=== PATIENT | male | born 1960 | race Caucasian/White ===

== ENCOUNTER 2017-05-08 14:39 | Inpatient (IN) | payer MEDICAID ==
[~2017-05-08] VITALS: Ht 175.3 cm; Wt 81.0 kg
[~2017-05-08 14:39] MED LIST: AMIT25PO14; AMIT75TA PO; BLOOD PRESSURE MEDS; DULO60CA7; HYDR-3240; HYDR-3240 PO; HYDR-3307 PO; INSU100C; INSU100C SQ-INSULIN; INSU100C5 SQ-INSULIN; INSU100V8; INSU100V8 SQ; INSU100V9 SQ; LISI-170; LISI-170 PO; METF500T4 PO; METO10TA82 PO; OXYC-302 PO; OXYC20TA42 PO; OXYC60TA8; POLY17PO5 PO; PREG100C; RISP2TAB35 PO; RISP4TAB2 PO; SIMV20TA3 PO; SIMV5TAB5 PO; TRAZ50TA18 PO; simvastatin
[2017-05-08] MEDS ORDERED: SODIUM CHLORIDE 0.9% 1,000 ML IV ONE ×2 (15:19→16:38)
[2017-05-08] MEDS ORDERED: SODIUM CHLORIDE 0.9% 1,000ML IVBOLUS ONE ×2 (15:30→17:00)
[2017-05-08] MEDS ORDERED: CEFTAROLINE 600 MG in SODIUM CHLORIDE 0.9% 100 ML IV ONE (15:30)
[2017-05-08] MEDS ORDERED: MORPHINE SULFATE 4 MG/ML, 1ML ONE ×2 (15:34→16:56)
[2017-05-08] MEDS: MORPHINE SULFATE 4 MG/ML, 1ML IVPush PRN ×2 (15:36→17:02)
[2017-05-08] MEDS ORDERED: ONDANSETRON 2MG/ML, 2ML IVPush ONE (16:00)
[2017-05-08 16:03] LABS: HEMATOCRIT 30.5 % (39.2-51.8); HEMOGLOBIN 10.2 g/dL (13.7-18.0); WHITE BLOOD COUNT 10.2 x10^3/uL (3.4-10)
[2017-05-08 16:15] LABS: BLOOD UREA NITROGEN 27 mg/dL (7-18)
[2017-05-08] MEDS ORDERED: SODIUM CHLORIDE FLUSH 10ML SYR IVF PRN (17:00)
[2017-05-08] MEDS ORDERED: ONDANSETRON 2MG/ML, 2ML IVPush PRN (18:30)
[2017-05-08] MEDS ORDERED: POLYETHYLENE GLYCOL 17 GM PACKET PO PRN (18:30)
[2017-05-08] MEDS ORDERED: PHARMACY MAY ADJ FOR RENAL FX MC PRN (18:30)
[2017-05-08] MEDS ORDERED: GLUCAGON 1 MG IM PRN (18:30)
[2017-05-08] MEDS ORDERED: LABETALOL 5MG/ML, 20ML IVPush PRN (18:30)
[2017-05-08] MEDS ORDERED: DEXTROSE 4 GM TAB.CHEW PO PRN (18:30)
[2017-05-08] MEDS ORDERED: ACETAMINOPHEN 325 MG TABLET PO PRN (18:30)
[2017-05-08] MEDS ORDERED: PROMETHAZINE 25 MG/ML, 1ML IM PRN (18:30)
[2017-05-08] MEDS ORDERED: PIPERACILLIN/TAZO/PMX 3.375GM 50 ML IV ONE (18:30)
[2017-05-08] MEDS ORDERED: DOCUSATE 100 MG CAPSULE PO PRN (18:30)
[2017-05-08] MEDS ORDERED: VANCOMYCIN PER PHARMACY MC PRN (18:30)
[2017-05-08] MEDS ORDERED: DEXTROSE 50%, 50ML SYRINGE IVPush PRN (18:30)
[2017-05-08] MEDS ORDERED: BISACODYL 10 MG SUPP PR PRN (18:30)
[2017-05-08] MEDS ORDERED: PHARMACOKINETIC CONSULTATION MC ONE (19:00)
[2017-05-08] MEDS ORDERED: PHARMACOKINETIC MONITORING MC PRN (19:00)
[2017-05-08 19:05] VITALS: BP 168/106
[2017-05-08] MEDS: TRAZODONE 50MG TABLET PO SCH (21:00)
[2017-05-08] MEDS: SIMVASTATIN 20 MG TABLET PO SCH (21:05)
[2017-05-08] MEDS: OxyconTIN ER 20 MG TAB.ER PO SCH (21:06)
[2017-05-08] MEDS: SODIUM CHLORIDE FLUSH 10ML SYR IVF SCH (21:06)
[2017-05-08] MEDS: SODIUM CHLORIDE 0.9% 1,000 ML IV SCH (21:06)
[2017-05-08] MEDS: HEPARIN 5,000 UNITS/ML, 1ML SQ SCH (21:07)
[2017-05-08 22:00] VITALS: BP 168/90
[2017-05-08] MEDS: VANCOMYCIN 1,400 MG in SODIUM CHLORIDE 0.9% 250 ML IV SCH (22:09)
[2017-05-08] MEDS: INSULIN DETEMIR 100 UNITS/ML, PEN SQ-INSULIN SCH (22:10)
[2017-05-08] MEDS: INSULIN ASPART 100 UNITS/ML, PEN SQ-INSULIN SCH (22:10)
[2017-05-09 01:20] VITALS: BP 155/86
[2017-05-09] MEDS: SODIUM CHLORIDE 0.9% 1,000 ML IV SCH ×3 (03:10→16:20)
[2017-05-09 04:55] LABS: HEMATOCRIT 29.7 % (39.2-51.8); HEMOGLOBIN 9.9 g/dL (13.7-18.0); WHITE BLOOD COUNT 6.9 x10^3/uL (3.4-10)
[2017-05-09 05:04] LABS: BLOOD UREA NITROGEN 22 mg/dL (7-18)
[2017-05-09 05:14] LABS: ASPARTATE AMINO TRANSFERASE 51 U/L (15-37)
[2017-05-09] MEDS: HEPARIN 5,000 UNITS/ML, 1ML SQ SCH ×3 (05:37→22:58)
[2017-05-09] MEDS: PIPERACILLIN/TAZO 2.25 GM in SODIUM CHLORIDE 0.9% 50 ML IV SCH ×2 (05:37→14:14)
[2017-05-09] MEDS: INSULIN DETEMIR 100 UNITS/ML, PEN SQ-INSULIN SCH (07:52)
[2017-05-09] MEDS: INSULIN ASPART 100 UNITS/ML, PEN SQ-INSULIN SCH ×4 (07:52→19:52)
[2017-05-09] MEDS: LISINOPRIL 20 MG TABLET PO SCH (07:53)
[2017-05-09] MEDS: OxyconTIN ER 20 MG TAB.ER PO SCH ×2 (07:53→22:58)
[2017-05-09] MEDS: SODIUM CHLORIDE FLUSH 10ML SYR IVF SCH ×2 (07:53→22:58)
[2017-05-09 08:10] VITALS: BP 153/85
[2017-05-09] MEDS: SENNA/DOCUSATE TABLET PO SCH (09:00)
[2017-05-09 13:37] VITALS: BP 158/93
[2017-05-09] MEDS: MUPIROCIN OINT 2%, 22GM TP SCH ×2 (14:14→22:59)
[2017-05-09] MEDS: MAGNESIUM SULFATE PMX 2GM/50ML 50 ML IV ONE ×2 (17:30→19:54)
[2017-05-09 19:44] VITALS: BP 167/89
[2017-05-09] MEDS: TRAZODONE 50MG TABLET PO SCH (22:58)
[2017-05-09] MEDS: SIMVASTATIN 20 MG TABLET PO SCH (22:58)
[2017-05-09] MEDS: VANCOMYCIN 1,400 MG in SODIUM CHLORIDE 0.9% 250 ML IV SCH (22:58)
[2017-05-10] MEDS: PIPERACILLIN/TAZO/PMX 3.375GM 50 ML IV SCH ×4 (00:56→18:42)
[2017-05-10] MEDS: INSULIN DETEMIR 100 UNITS/ML, PEN SQ-INSULIN SCH ×3 (01:05→21:17)
[2017-05-10 02:18] VITALS: BP 155/84
[2017-05-10 05:04] LABS: HEMATOCRIT 29.4 % (39.2-51.8); HEMOGLOBIN 9.9 g/dL (13.7-18.0); WHITE BLOOD COUNT 7.3 x10^3/uL (3.4-10)
[2017-05-10 05:16] LABS: BLOOD UREA NITROGEN 19 mg/dL (7-18)
[2017-05-10 05:20] LABS: ASPARTATE AMINO TRANSFERASE 59 U/L (15-37)
[2017-05-10] MEDS: SODIUM CHLORIDE 0.9% 1,000 ML IV SCH ×3 (05:42→18:43)
[2017-05-10 07:50] VITALS: BP 106/62
[2017-05-10] MEDS: INSULIN ASPART 100 UNITS/ML, PEN SQ-INSULIN SCH ×4 (08:18→21:18)
[2017-05-10] MEDS: OxyconTIN ER 20 MG TAB.ER PO SCH ×2 (08:20→21:17)
[2017-05-10] MEDS: HEPARIN 5,000 UNITS/ML, 1ML SQ SCH ×3 (08:20→23:04)
[2017-05-10] MEDS: MUPIROCIN OINT 2%, 22GM TP SCH ×3 (08:20→21:19)
[2017-05-10] MEDS: SENNA/DOCUSATE TABLET PO SCH (08:20)
[2017-05-10] MEDS: SODIUM CHLORIDE FLUSH 10ML SYR IVF SCH ×2 (08:20→21:17)
[2017-05-10] MEDS: LISINOPRIL 20 MG TABLET PO SCH (08:21)
[2017-05-10 13:00] VITALS: BP 108/106
[2017-05-10 19:53] VITALS: BP 133/75
[2017-05-10] MEDS: TRAZODONE 50MG TABLET PO SCH (21:18)
[2017-05-10] MEDS: SIMVASTATIN 20 MG TABLET PO SCH (21:18)
[2017-05-10] MEDS: VANCOMYCIN 1,400 MG in SODIUM CHLORIDE 0.9% 250 ML IV SCH (22:25)
[2017-05-11] MEDS: PIPERACILLIN/TAZO/PMX 3.375GM 50 ML IV SCH ×4 (00:08→22:00)
[2017-05-11 02:03] VITALS: BP 161/86
[2017-05-11 05:26] LABS: BLOOD UREA NITROGEN 22 mg/dL (7-18); TOTAL IRON BINDING CAPACITY 163 mcg/dL (250-450)
[2017-05-11 05:27] LABS: HEMATOCRIT 27.1 % (39.2-51.8); HEMOGLOBIN 9.2 g/dL (13.7-18.0); WHITE BLOOD COUNT 5.4 x10^3/uL (3.4-10)
[2017-05-11] MEDS: SODIUM CHLORIDE 0.9% 1,000 ML IV SCH ×3 (05:33→22:21)
[2017-05-11] MEDS: HEPARIN 5,000 UNITS/ML, 1ML SQ SCH ×3 (07:00→23:07)
[2017-05-11] MEDS: INSULIN ASPART 100 UNITS/ML, PEN SQ-INSULIN SCH ×4 (07:00→19:40)
[2017-05-11 07:11] VITALS: BP 140/84
[2017-05-11 07:14] LABS: HIV 1&2 ANTIBODY SCREEN Nonreactive (Nonreactive); HIV-1 p24 ANTIGEN Nonreactive (Nonreactive)
[2017-05-11] MEDS: SENNA/DOCUSATE TABLET PO SCH (07:36)
[2017-05-11] MEDS: OxyconTIN ER 20 MG TAB.ER PO SCH ×2 (07:36→21:25)
[2017-05-11] MEDS: LISINOPRIL 20 MG TABLET PO SCH (07:36)
[2017-05-11] MEDS: SODIUM CHLORIDE FLUSH 10ML SYR IVF SCH ×2 (07:37→19:40)
[2017-05-11] MEDS: MUPIROCIN OINT 2%, 22GM TP SCH ×3 (07:37→21:25)
[2017-05-11] MEDS: IRON SUCROSE COMPLEX 100MG/5ML IV SCH (12:48)
[2017-05-11 13:13] VITALS: BP 159/88
[2017-05-11] MEDS: INSULIN DETEMIR 100 UNITS/ML, PEN SQ-INSULIN SCH (19:35)
[2017-05-11 20:15] VITALS: BP 163/94
[2017-05-11] MEDS: TRAZODONE 50MG TABLET PO SCH (21:24)
[2017-05-11] MEDS: SIMVASTATIN 20 MG TABLET PO SCH (21:25)
[2017-05-12] MEDS: PIPERACILLIN/TAZO/PMX 3.375GM 50 ML IV SCH ×3 (04:00→18:06)
[2017-05-12 04:14] VITALS: BP 167/96
[2017-05-12] MEDS: SODIUM CHLORIDE 0.9% 1,000 ML IV SCH ×3 (04:14→18:06)
[2017-05-12 05:16] LABS: HEMATOCRIT 28.8 % (39.2-51.8); HEMOGLOBIN 9.8 g/dL (13.7-18.0)
[2017-05-12 05:26] LABS: BLOOD UREA NITROGEN 21 mg/dL (7-18)
[2017-05-12 07:28] VITALS: BP 138/84
[2017-05-12] MEDS: INSULIN ASPART 100 UNITS/ML, PEN SQ-INSULIN SCH ×4 (07:31→21:00)
[2017-05-12] MEDS: LISINOPRIL 20 MG TABLET PO SCH (07:32)
[2017-05-12] MEDS: SENNA/DOCUSATE TABLET PO SCH (07:33)
[2017-05-12] MEDS: MUPIROCIN OINT 2%, 22GM TP SCH ×3 (07:33→21:12)
[2017-05-12] MEDS: HEPARIN 5,000 UNITS/ML, 1ML SQ SCH ×2 (07:33→15:13)
[2017-05-12] MEDS: SODIUM CHLORIDE FLUSH 10ML SYR IVF SCH ×2 (07:34→21:00)
[2017-05-12] MEDS: INSULIN DETEMIR 100 UNITS/ML, PEN SQ-INSULIN SCH ×2 (07:34→21:11)
[2017-05-12] MEDS: OxyconTIN ER 20 MG TAB.ER PO SCH ×2 (07:38→21:10)
[2017-05-12] MEDS: IRON SUCROSE COMPLEX 100MG/5ML IV SCH (12:36)
[2017-05-12 12:56] VITALS: BP 150/87
[2017-05-12] MEDS ORDERED: PHARMACY MAY ADJ FOR RENAL FX MC PRN (14:00)
[2017-05-12 21:00] VITALS: BP 156/85
[2017-05-12] MEDS: SIMVASTATIN 20 MG TABLET PO SCH (21:10)
[2017-05-12] MEDS: TRAZODONE 50MG TABLET PO SCH (21:10)
[2017-05-13] MEDS: PIPERACILLIN/TAZO/PMX 3.375GM 50 ML IV SCH ×4 (00:49→18:21)
[2017-05-13] MEDS: SODIUM CHLORIDE 0.9% 1,000 ML IV SCH ×3 (00:49→17:26)
[2017-05-13] MEDS: HEPARIN 5,000 UNITS/ML, 1ML SQ SCH ×4 (00:49→22:56)
[2017-05-13 00:56] VITALS: BP 171/96
[2017-05-13 03:12] VITALS: BP 146/74
[2017-05-13] MEDS ORDERED: PROMETHAZINE 25 MG/ML, 1ML IM PRN (04:30)
[2017-05-13] MEDS ORDERED: LABETALOL 5MG/ML, 20ML IVPush PRN (04:30)
[2017-05-13] MEDS ORDERED: POLYETHYLENE GLYCOL 17 GM PACKET PO PRN (04:30)
[2017-05-13] MEDS ORDERED: DEXTROSE 4 GM TAB.CHEW PO PRN (04:30)
[2017-05-13] MEDS ORDERED: DEXTROSE 50%, 50ML SYRINGE IVPush PRN (04:30)
[2017-05-13] MEDS ORDERED: ACETAMINOPHEN 325 MG TABLET PO PRN (04:30)
[2017-05-13] MEDS ORDERED: BISACODYL 10 MG SUPP PR PRN (04:30)
[2017-05-13] MEDS ORDERED: ONDANSETRON 2MG/ML, 2ML IVPush PRN (04:30)
[2017-05-13] MEDS ORDERED: DOCUSATE 100 MG CAPSULE PO PRN (04:30)
[2017-05-13 07:37] VITALS: BP 158/84
[2017-05-13] MEDS: INSULIN ASPART 100 UNITS/ML, PEN SQ-INSULIN SCH ×4 (07:40→21:00)
[2017-05-13] MEDS: OxyconTIN ER 20 MG TAB.ER PO SCH ×2 (08:21→22:55)
[2017-05-13] MEDS: SENNA/DOCUSATE TABLET PO SCH (08:21)
[2017-05-13] MEDS: VANCOMYCIN 1,200 MG in SODIUM CHLORIDE 0.9% 250 ML IV SCH (08:21)
[2017-05-13] MEDS: MUPIROCIN OINT 2%, 22GM TP SCH ×3 (08:22→22:56)
[2017-05-13] MEDS: SODIUM CHLORIDE FLUSH 10ML SYR IVF SCH ×2 (08:22→21:00)
[2017-05-13] MEDS: IRON SUCROSE COMPLEX 100MG/5ML IV SCH (08:22)
[2017-05-13] MEDS: LISINOPRIL 20 MG TABLET PO SCH (08:25)
[2017-05-13] MEDS: INSULIN DETEMIR 100 UNITS/ML, PEN SQ-INSULIN SCH ×2 (08:26→21:00)
[2017-05-13 11:47] LABS: HEMATOCRIT 28.3 % (39.2-51.8); HEMOGLOBIN 9.4 g/dL (13.7-18.0); WHITE BLOOD COUNT 5.3 x10^3/uL (3.4-10)
[2017-05-13 11:58] LABS: BLOOD UREA NITROGEN 19 mg/dL (7-18)
[2017-05-13 14:05] VITALS: BP 159/88
[2017-05-13] MEDS: SIMVASTATIN 20 MG TABLET PO SCH (22:56)
[2017-05-13] MEDS: AMLODIPINE 5 MG TABLET PO SCH (22:56)
[2017-05-13] MEDS: TRAZODONE 50MG TABLET PO SCH (22:56)
[2017-05-13 23:20] VITALS: BP 177/97
[2017-05-14] MEDS: SODIUM CHLORIDE 0.9% 1,000 ML IV SCH ×3 (01:21→16:53)
[2017-05-14] MEDS: PIPERACILLIN/TAZO/PMX 3.375GM 50 ML IV SCH ×4 (01:22→20:33)
[2017-05-14 01:24] VITALS: BP 169/93
[2017-05-14 05:26] LABS: HEMATOCRIT 27.4 % (39.2-51.8); HEMOGLOBIN 9.1 g/dL (13.7-18.0); WHITE BLOOD COUNT 4.5 x10^3/uL (3.4-10)
[2017-05-14 05:51] LABS: BLOOD UREA NITROGEN 16 mg/dL (7-18)
[2017-05-14 07:25] VITALS: BP 132/82
[2017-05-14] MEDS: INSULIN ASPART 100 UNITS/ML, PEN SQ-INSULIN SCH ×4 (07:30→20:37)
[2017-05-14] MEDS: HEPARIN 5,000 UNITS/ML, 1ML SQ SCH ×3 (08:30→20:40)
[2017-05-14] MEDS: MUPIROCIN OINT 2%, 22GM TP SCH ×3 (08:32→20:33)
[2017-05-14] MEDS: SENNA/DOCUSATE TABLET PO SCH (08:32)
[2017-05-14] MEDS: IRON SUCROSE COMPLEX 100MG/5ML IV SCH (08:32)
[2017-05-14] MEDS: AMLODIPINE 5 MG TABLET PO SCH ×2 (08:32→20:33)
[2017-05-14] MEDS: SODIUM CHLORIDE FLUSH 10ML SYR IVF SCH ×2 (08:33→20:37)
[2017-05-14] MEDS: VANCOMYCIN 1,200 MG in SODIUM CHLORIDE 0.9% 250 ML IV SCH (08:33)
[2017-05-14] MEDS: INSULIN DETEMIR 100 UNITS/ML, PEN SQ-INSULIN SCH ×2 (08:34→20:37)
[2017-05-14] MEDS: OxyconTIN ER 20 MG TAB.ER PO SCH ×2 (09:19→20:33)
[2017-05-14 14:14] VITALS: BP 154/83
[2017-05-14] MEDS: SIMVASTATIN 20 MG TABLET PO SCH (20:33)
[2017-05-14] MEDS: TRAZODONE 50MG TABLET PO SCH (20:33)
[2017-05-14 20:42] VITALS: BP 157/88
[2017-05-15] MEDS: SODIUM CHLORIDE 0.9% 1,000 ML IV SCH ×4 (02:39→22:14)
[2017-05-15] MEDS: PIPERACILLIN/TAZO/PMX 3.375GM 50 ML IV SCH ×4 (02:41→22:13)
[2017-05-15 02:44] VITALS: BP 154/87
[2017-05-15] MEDS: INSULIN ASPART 100 UNITS/ML, PEN SQ-INSULIN SCH ×4 (07:00→21:00)
[2017-05-15] MEDS: HEPARIN 5,000 UNITS/ML, 1ML SQ SCH ×3 (07:00→23:14)
[2017-05-15 07:20] VITALS: BP 144/78
[2017-05-15] MEDS: INSULIN DETEMIR 100 UNITS/ML, PEN SQ-INSULIN SCH ×2 (09:00→22:14)
[2017-05-15] MEDS: IRON SUCROSE COMPLEX 100MG/5ML IV SCH (10:23)
[2017-05-15] MEDS: MUPIROCIN OINT 2%, 22GM TP SCH ×3 (10:23→22:22)
[2017-05-15] MEDS: SENNA/DOCUSATE TABLET PO SCH (10:26)
[2017-05-15] MEDS: AMLODIPINE 5 MG TABLET PO SCH ×2 (10:27→22:13)
[2017-05-15] MEDS: OxyconTIN ER 20 MG TAB.ER PO SCH ×2 (10:27→22:13)
[2017-05-15] MEDS: SODIUM CHLORIDE FLUSH 10ML SYR IVF SCH ×2 (10:28→22:14)
[2017-05-15 15:00] VITALS: BP 155/83
[2017-05-15] MEDS ORDERED: VANCOMYCIN 1,300 MG in SODIUM CHLORIDE 0.9% 250 ML IV SCH (20:00)
[2017-05-15 20:15] VITALS: BP 120/78
[2017-05-15] MEDS: TRAZODONE 50MG TABLET PO SCH (22:13)
[2017-05-15] MEDS: SIMVASTATIN 20 MG TABLET PO SCH (22:13)
[2017-05-16 01:47] VITALS: BP 143/89
[2017-05-16] MEDS: PIPERACILLIN/TAZO/PMX 3.375GM 50 ML IV SCH ×2 (04:43→10:39)
[2017-05-16] MEDS: INSULIN ASPART 100 UNITS/ML, PEN SQ-INSULIN SCH ×4 (07:00→21:00)
[2017-05-16] MEDS: OxyconTIN ER 20 MG TAB.ER PO SCH ×2 (08:09→21:58)
[2017-05-16] MEDS: SENNA/DOCUSATE TABLET PO SCH (08:10)
[2017-05-16] MEDS: AMLODIPINE 5 MG TABLET PO SCH ×2 (08:11→21:58)
[2017-05-16] MEDS: HEPARIN 5,000 UNITS/ML, 1ML SQ SCH ×3 (08:14→23:28)
[2017-05-16] MEDS: MUPIROCIN OINT 2%, 22GM TP SCH ×3 (08:15→21:58)
[2017-05-16] MEDS: SODIUM CHLORIDE FLUSH 10ML SYR IVF SCH ×2 (08:15→21:59)
[2017-05-16] MEDS: IRON SUCROSE COMPLEX 100MG/5ML IV SCH (08:15)
[2017-05-16] MEDS: SODIUM CHLORIDE 0.9% 1,000 ML IV SCH (08:15)
[2017-05-16] MEDS: INSULIN DETEMIR 100 UNITS/ML, PEN SQ-INSULIN SCH (09:00)
[2017-05-16 09:26] VITALS: BP 149/93
[2017-05-16 09:59] LABS: IS PT STATUS REG ER OR PRE ER? NO
[2017-05-16 14:16] VITALS: BP 148/93
[2017-05-16] MEDS: CLINDAMYCIN 300 MG CAPSULE PO SCH ×2 (15:47→21:58)
[2017-05-16 19:10] VITALS: BP 132/80
[2017-05-16 20:39] LABS: IS PT STATUS REG ER OR PRE ER? NO
[2017-05-16] MEDS: TRAZODONE 50MG TABLET PO SCH (21:58)
[2017-05-16] MEDS: SIMVASTATIN 20 MG TABLET PO SCH (21:58)
[2017-05-17 01:55] VITALS: BP 128/86
[2017-05-17] MEDS: CLINDAMYCIN 300 MG CAPSULE PO SCH ×4 (04:36→22:54)
[2017-05-17 06:49] VITALS: BP 129/81
[2017-05-17] MEDS: INSULIN ASPART 100 UNITS/ML, PEN SQ-INSULIN SCH ×4 (07:00→21:30)
[2017-05-17] MEDS: INSULIN DETEMIR 100 UNITS/ML, PEN SQ-INSULIN SCH (08:11)
[2017-05-17] MEDS ORDERED: REGADENOSON 0.4 MG/5 ML SYRINGE ONE (08:41)
[2017-05-17] MEDS: AMLODIPINE 5 MG TABLET PO SCH ×2 (09:00→21:30)
[2017-05-17] MEDS: OxyconTIN ER 20 MG TAB.ER PO SCH ×2 (09:00→21:30)
[2017-05-17] MEDS: FLORASTOR 250 MG CAPSULE PO SCH (09:00)
[2017-05-17] MEDS: SENNA/DOCUSATE TABLET PO SCH (09:00)
[2017-05-17] MEDS: IRON SUCROSE COMPLEX 100MG/5ML IV SCH (11:44)
[2017-05-17] MEDS: MUPIROCIN OINT 2%, 22GM TP SCH ×3 (11:44→21:30)
[2017-05-17] MEDS: SODIUM CHLORIDE FLUSH 10ML SYR IVF SCH ×2 (11:44→21:32)
[2017-05-17] MEDS: HEPARIN 5,000 UNITS/ML, 1ML SQ SCH ×2 (11:46→21:30)
[2017-05-17 14:00] VITALS: BP 131/79
[2017-05-17 19:41] VITALS: BP 115/73
[2017-05-17] MEDS: TRAZODONE 50MG TABLET PO SCH (21:30)
[2017-05-17] MEDS: SIMVASTATIN 20 MG TABLET PO SCH (21:30)
[2017-05-18 02:40] VITALS: BP 136/83
[2017-05-18] MEDS: CLINDAMYCIN 300 MG CAPSULE PO SCH (04:51)
[2017-05-18] MEDS: HEPARIN 5,000 UNITS/ML, 1ML SQ SCH (04:52)
[2017-05-18] MEDS: INSULIN ASPART 100 UNITS/ML, PEN SQ-INSULIN SCH (07:00)
[2017-05-18 07:59] VITALS: BP 155/62
[2017-05-18] MEDS: IRON SUCROSE COMPLEX 100MG/5ML IV SCH (08:04)
[2017-05-18] MEDS: AMLODIPINE 5 MG TABLET PO SCH (08:05)
[2017-05-18] MEDS: OxyconTIN ER 20 MG TAB.ER PO SCH (08:05)
[2017-05-18] MEDS: SODIUM CHLORIDE FLUSH 10ML SYR IVF SCH (08:05)
[2017-05-18] MEDS: INSULIN DETEMIR 100 UNITS/ML, PEN SQ-INSULIN SCH (08:06)
[2017-05-18] MEDS: FLORASTOR 250 MG CAPSULE PO SCH (08:07)
[2017-05-18] MEDS: MUPIROCIN OINT 2%, 22GM TP SCH (08:07)
[2017-05-18] MEDS ORDERED: SENNA/DOCUSATE TABLET PO SCH (09:00)
[2017-05-18] MEDS ORDERED: CARV3.1212 PO (10:47)
[2017-05-18] MEDS ORDERED: CLIN300C8 PO (10:47)
== END 2017-05-18 11:45 | disposition left against medical advice (07) | DRG 682 ==
LOC: ED 15:48 → EDIP 16:38 → 3NE 18:13
PROVIDERS: ADMIT Internal Medicine; ATTEND Internal Medicine
PROC: 02HV33Z Insertion of Infusion Device into Superior Vena Cava, Percutaneous Approach (ICD-10-PCS; principal; 2017-05-12)
PROC: B548ZZA Ultrasonography of Superior Vena Cava, Guidance (ICD-10-PCS; 2017-05-12)
PROC: B5181ZA Fluoroscopy of Superior Vena Cava using Low Osmolar Contrast, Guidance (ICD-10-PCS; 2017-05-12)
DX: N17.0 Acute kidney failure with tubular necrosis (principal); E43 Unspecified severe protein-calorie malnutrition; I42.9 Cardiomyopathy, unspecified; E10.21 Type 1 diabetes mellitus with diabetic nephropathy; I13.0 Hypertensive heart and chronic kidney disease with heart failure and stage 1 through stage 4 chronic kidney disease, or unspecified chronic kidney disease; I50.9 Heart failure, unspecified; K70.9 Alcoholic liver disease, unspecified; F11.20 Opioid dependence, uncomplicated; L03.115 Cellulitis of right lower limb; L03.116 Cellulitis of left lower limb; L02.416 Cutaneous abscess of left lower limb; L02.415 Cutaneous abscess of right lower limb; N18.4 Chronic kidney disease, stage 4 (severe); I27.2 Other secondary pulmonary hypertension; D63.8 Anemia in other chronic diseases classified elsewhere; E10.22 Type 1 diabetes mellitus with diabetic chronic kidney disease; E10.621 Type 1 diabetes mellitus with foot ulcer; E10.42 Type 1 diabetes mellitus with diabetic polyneuropathy; E10.43 Type 1 diabetes mellitus with diabetic autonomic (poly)neuropathy; E10.610 Type 1 diabetes mellitus with diabetic neuropathic arthropathy; E78.00 Pure hypercholesterolemia, unspecified; E78.5 Hyperlipidemia, unspecified; F17.210 Nicotine dependence, cigarettes, uncomplicated; F31.9 Bipolar disorder, unspecified; F42.4 Excoriation (skin-picking) disorder; G89.29 Other chronic pain; K31.84 Gastroparesis; L30.9 Dermatitis, unspecified; L97.509 Non-pressure chronic ulcer of other part of unspecified foot with unspecified severity; F10.20 Alcohol dependence, uncomplicated; F19.10 Other psychoactive substance abuse, uncomplicated; M19.90 Unspecified osteoarthritis, unspecified site; Z89.421 Acquired absence of other right toe(s); Z79.4 Long term (current) use of insulin; Z86.14 Personal history of Methicillin resistant Staphylococcus aureus infection; Z68.26 Body mass index [BMI] 26.0-26.9, adult
CPT/HCPCS: 36415; 36569; 76937; 77001; 78452; 80048; 80053; 80061; 80202; 82010; 82040; 82800; 82962; 83036; 83540; 83550; 83605; 83735; 84100; 84145; 84443; 84484; 85025; 86703; 87040; 87899; 93005; 93017; 93306; 93970; 96361; 96365; 96375; 96376; J0712; J1644; J1756; J1815; J2405; J2543; J2785; J3370; A9502; C1751; C9898; G0435; J3475; J7030; J7050

== ENCOUNTER 2017-05-21 04:03 | Inpatient (IN) | payer MEDICAID ==
[~2017-05-21] VITALS: Ht 175.3 cm; Wt 76.8 kg
[~2017-05-21 04:03] MED LIST changes: +CARV3.1212 PO; +CLIN300C8 PO
[2017-05-21] MEDS ORDERED: NITROGLYCERIN SINGLE TAB 0.4 MG SL ONE (04:54)
[2017-05-21] MEDS ORDERED: ASPIRIN 81 MG TABLET CHEW ONE (04:55)
[2017-05-21] MEDS ORDERED: SODIUM CHLORIDE 0.9% 1,000ML IVBOLUS ONE (05:00)
[2017-05-21] MEDS ORDERED: ASPIRIN 81 MG TABLET CHEW PO ONE (05:00)
[2017-05-21] MEDS ORDERED: SODIUM CHLORIDE FLUSH 10ML SYR IVF ONE (05:00)
[2017-05-21] MEDS ORDERED: NITROGLYCERIN SINGLE TAB 0.4 MG SL PRN (05:00)
[2017-05-21] MEDS ORDERED: SODIUM CHLORIDE 0.9% 1,000 ML IV ONE (05:05)
[2017-05-21 05:45] LABS: HEMATOCRIT 27.6 % (39.2-51.8); HEMOGLOBIN 9.4 g/dL (13.7-18.0); WHITE BLOOD COUNT 7.1 x10^3/uL (3.4-10)
[2017-05-21 05:55] LABS: BLOOD UREA NITROGEN 24 mg/dL (7-18)
[2017-05-21 06:02] LABS: ASPARTATE AMINO TRANSFERASE 56 U/L (15-37)
[2017-05-21] MEDS ORDERED: FUROSEMIDE 20 MG/2 ML IV ONE (06:30)
[2017-05-21] MEDS ORDERED: FUROSEMIDE 20 MG/2 ML ONE (06:44)
[2017-05-21 06:54] LABS: IS PT STATUS REG ER OR PRE ER? YES
[2017-05-21] MEDS ORDERED: SODIUM CHLORIDE FLUSH 10ML SYR IVF PRN (07:00)
[2017-05-21 11:42] VITALS: BP 167/88
[2017-05-21 12:32] LABS: PATH.CAST-FLAG NOT PRESENT; SPERM-FLAG NOT PRESENT; SRC-FLAG NOT PRESENT; XTAL-FLAG NOT PRESENT; YLC-FLAG NOT PRESENT
[2017-05-21] MEDS ORDERED: morphine SULFATE 10 MG/ML, 1ML IVPush PRN (13:30)
[2017-05-21] MEDS ORDERED: POLYETHYLENE GLYCOL 17 GM PACKET PO PRN (13:30)
[2017-05-21] MEDS ORDERED: LABETALOL 5MG/ML, 20ML IVPush PRN (13:30)
[2017-05-21] MEDS ORDERED: ONDANSETRON ODT 4 MG PO PRN (13:30)
[2017-05-21] MEDS ORDERED: GUAIFENESIN/DM 200-20MG, 10ML UDC PO PRN (13:30)
[2017-05-21] MEDS ORDERED: ONDANSETRON 2MG/ML, 2ML IVPush PRN (13:30)
[2017-05-21] MEDS: ENOXAPARIN 40 MG/0.4 ML SQ SCH (14:26)
[2017-05-21] MEDS: HYDROcodone/APAP 5/325 TABLET PO PRN ×2 (14:26→23:12)
[2017-05-21] MEDS ORDERED: ALBUTEROL SULFATE 2.5 MG/3 ML ONE (15:31)
[2017-05-21] MEDS: ALBUTEROL SULFATE 2.5 MG/3 ML NPPB PRN ×2 (15:35→23:39)
[2017-05-21 16:00] VITALS: BP 129/66
[2017-05-21] MEDS: FUROSEMIDE 20 MG/2 ML IV SCH (16:04)
[2017-05-21] MEDS: INSULIN ASPART 100 UNITS/ML, PEN SQ-INSULIN SCH ×2 (16:14→23:13)
[2017-05-21 17:08] LABS: IS PT STATUS REG ER OR PRE ER? NO
[2017-05-21] MEDS ORDERED: INSU100I34 SC (17:54)
[2017-05-21] MEDS ORDERED: ATOR40TA78 PO (17:54)
[2017-05-21] MEDS ORDERED: METF500T4 PO (17:54)
[2017-05-21] MEDS ORDERED: ASPI-621 PO (17:54)
[2017-05-21 20:20] VITALS: BP 140/78
[2017-05-21] MEDS ORDERED: SIMVASTATIN 20 MG TABLET PO SCH (21:00)
[2017-05-21] MEDS: CARVEDILOL 3.125 MG TABLET PO SCH (23:12)
[2017-05-21] MEDS: INSULIN DETEMIR 100 UNITS/ML, PEN SQ-INSULIN SCH (23:18)
[2017-05-22 02:15] VITALS: BP 138/73
[2017-05-22 05:56] LABS: HEMATOCRIT 28.4 % (39.2-51.8); HEMOGLOBIN 9.7 g/dL (13.7-18.0)
[2017-05-22 06:24] LABS: ASPARTATE AMINO TRANSFERASE 48 U/L (15-37); BLOOD UREA NITROGEN 25 mg/dL (7-18)
[2017-05-22] MEDS: INSULIN ASPART 100 UNITS/ML, PEN SQ-INSULIN SCH ×4 (07:00→21:16)
[2017-05-22 07:19] VITALS: BP 169/86
[2017-05-22] MEDS: HYDROcodone/APAP 5/325 TABLET PO PRN ×3 (07:29→20:07)
[2017-05-22] MEDS: ASPIRIN 81 MG TABLET EC PO SCH (08:51)
[2017-05-22] MEDS: LISINOPRIL 20 MG TABLET PO SCH (08:51)
[2017-05-22] MEDS: CARVEDILOL 3.125 MG TABLET PO SCH ×2 (08:51→21:14)
[2017-05-22] MEDS: SENNA/DOCUSATE TABLET PO SCH (08:51)
[2017-05-22] MEDS: INSULIN DETEMIR 100 UNITS/ML, PEN SQ-INSULIN SCH (08:52)
[2017-05-22] MEDS ORDERED: POTASSIUM CHLORIDE 20 MEQ TAB.ER.PRT PO ONE ×2 (09:00→17:00)
[2017-05-22] MEDS: FUROSEMIDE 20 MG/2 ML IV SCH ×2 (09:02→16:27)
[2017-05-22] MEDS: ENOXAPARIN 40 MG/0.4 ML SQ SCH (13:27)
[2017-05-22 13:39] VITALS: BP 167/92
[2017-05-22] MEDS ORDERED: MAGNESIUM SULFATE PMX 2GM/50ML 50 ML IV ONE (17:00)
[2017-05-22 18:51] VITALS: BP 157/88
[2017-05-22] MEDS: ALBUTEROL SULFATE 2.5 MG/3 ML NPPB PRN (20:41)
[2017-05-22] MEDS ORDERED: ATORVASTATIN 40 MG TABLET PO SCH (21:00)
[2017-05-22] MEDS ORDERED: INSULIN DETEMIR 100 UNITS/ML, PEN SQ-INSULIN SCH (21:00)
[2017-05-22] MEDS ORDERED: SODIUM CHLORIDE 0.9% 1,000 ML IV SCH (21:00)
[2017-05-23] MEDS: HYDROcodone/APAP 5/325 TABLET PO PRN ×3 (00:06→14:32)
[2017-05-23 03:00] VITALS: BP 152/86
[2017-05-23 05:48] LABS: HEMATOCRIT 31.7 % (39.2-51.8); HEMOGLOBIN 10.6 g/dL (13.7-18.0); WHITE BLOOD COUNT 6.7 x10^3/uL (3.4-10)
[2017-05-23 06:26] LABS: ASPARTATE AMINO TRANSFERASE 53 U/L (15-37); BLOOD UREA NITROGEN 28 mg/dL (7-18)
[2017-05-23] MEDS ORDERED: POTA20TA89 PO (06:43)
[2017-05-23] MEDS ORDERED: FURO-93 PO (06:43)
[2017-05-23] MEDS ORDERED: CEFD300C37 PO (06:44)
[2017-05-23] MEDS ORDERED: DOXY100T PO (06:44)
[2017-05-23 06:50] VITALS: BP 150/91
[2017-05-23] MEDS: INSULIN ASPART 100 UNITS/ML, PEN SQ-INSULIN SCH ×2 (07:00→11:00)
[2017-05-23] MEDS ORDERED: CEFTRIAXONE PMX 2GM/50ML 50 ML IV SCH (07:00)
[2017-05-23] MEDS ORDERED: FUROSEMIDE 40 MG TABLET PO SCH (07:30)
[2017-05-23] MEDS ORDERED: INSULIN DETEMIR 100 UNITS/ML, PEN SQ-INSULIN SCH ×4 (08:00→21:00)
[2017-05-23] MEDS ORDERED: GABAPENTIN 100 MG CAPSULE PO SCH (09:00)
[2017-05-23] MEDS ORDERED: DOXYCYCLINE 100MG TABLET PO SCH (09:00)
[2017-05-23] MEDS: SENNA/DOCUSATE TABLET PO SCH (09:00)
[2017-05-23] MEDS: LISINOPRIL 20 MG TABLET PO SCH (09:21)
[2017-05-23] MEDS: ASPIRIN 81 MG TABLET EC PO SCH (09:21)
[2017-05-23] MEDS: CARVEDILOL 3.125 MG TABLET PO SCH (09:47)
[2017-05-23] MEDS: ENOXAPARIN 40 MG/0.4 ML SQ SCH (12:58)
[2017-05-23 14:26] VITALS: BP 163/99
[2017-05-24] MEDS ORDERED: INSU100V13 SC ×2 (10:16→10:23)
== END 2017-05-23 15:38 | disposition home or self-care (01) | DRG 291 ==
LOC: ED 05:48 → EDIP 06:36 → 5SO 11:25 → DCLOUNGE 05-23 15:05
PROVIDERS: ADMIT Hospitalist; ATTEND Hospitalist
DX: I13.0 Hypertensive heart and chronic kidney disease with heart failure and stage 1 through stage 4 chronic kidney disease, or unspecified chronic kidney disease (principal); I50.41 Acute combined systolic (congestive) and diastolic (congestive) heart failure; J18.9 Pneumonia, unspecified organism; E10.21 Type 1 diabetes mellitus with diabetic nephropathy; E10.40 Type 1 diabetes mellitus with diabetic neuropathy, unspecified; E46 Unspecified protein-calorie malnutrition; I27.2 Other secondary pulmonary hypertension; L03.115 Cellulitis of right lower limb; K70.9 Alcoholic liver disease, unspecified; I25.10 Atherosclerotic heart disease of native coronary artery without angina pectoris; D63.8 Anemia in other chronic diseases classified elsewhere; E10.22 Type 1 diabetes mellitus with diabetic chronic kidney disease; E10.65 Type 1 diabetes mellitus with hyperglycemia; E78.00 Pure hypercholesterolemia, unspecified; E78.5 Hyperlipidemia, unspecified; F10.21 Alcohol dependence, in remission; F31.9 Bipolar disorder, unspecified; F42.4 Excoriation (skin-picking) disorder; G40.909 Epilepsy, unspecified, not intractable, without status epilepticus; G89.29 Other chronic pain; N18.3 Chronic kidney disease, stage 3 (moderate); Z79.4 Long term (current) use of insulin; Z85.05 Personal history of malignant neoplasm of liver; Z86.14 Personal history of Methicillin resistant Staphylococcus aureus infection; Z87.891 Personal history of nicotine dependence
CPT/HCPCS: 36415; 71010; 76700; 78582; 80053; 80061; 81001; 82962; 83036; 83735; 83880; 84439; 84484; 85025; 85610; 87040; 87070; 87077; 87186; 87205; 93005; 94640; 96374; J0696; J1650; J1815; J7613; A9540; A9558; C9898; J1940; J3475

== ENCOUNTER 2018-12-24 12:13 | Emergency (ER) | payer MEDICARE, MEDICAID ==
[~2018-12-24] VITALS: Ht 175.3 cm; Wt 75.7 kg
[~2018-12-24 12:13] MED LIST changes: +ASPI81TA45 PO; +ATOR40TA78 PO; +CEFD300C37 PO; +DOXY100T PO; +FURO-93 PO; +INSU100I34 SC; +INSU100V13 SC; +METF500T17 PO; -METF500T4 PO; +POTA20TA89 PO; +SIMV5TAB14 PO; -SIMV5TAB5 PO; -TRAZ50TA18 PO; +TRAZ50TA66 PO
--- NOTE | 2018-12-24 12:31 | NUR ---
PT HERE FOR COUGH X 8 DAYS WITHOUT RELIEF. PT DENIES ANY OTHER SYMPTOMS. REPORTS NOT TAKING HIS BP MEDICATIONS THIS MORNING. PT RESTING IN BED AND SPEAKING IN FULL SENTANCES.
[2018-12-24 13:10] LABS: BASOPHILS # (AUTO) 0.02 x10^3/uL (0-0.1); BASOPHILS % (AUTO) 0 % (0-1); EOSINOPHILS # (AUTO) 0.14 x10^3/uL (0-0.4); EOSINOPHILS % (AUTO) 1 % (1-7); LYMPHOCYTES # (AUTO) 1.53 x10^3/uL (1-3.4); LYMPHOCYTES % (AUTO) 15 % (22-44); MD NO; MEAN CORPUSCULAR HEMOGLOBIN 30.9 pg (27.5-34.5); MEAN CORPUSCULAR VOLUME 96.4 fL (81-97); MEAN PLATELET VOLUME 9.1 fL (7.4-10.4); MONOCYTES # (AUTO) 0.46 x10^3/uL (0.2-0.8); MONOCYTES % (AUTO) 5 % (2-9); NEUTROPHILS # (AUTO) 8.12 x10^3/uL (1.8-6.8); NEUTROPHILS % (AUTO) 79 % (42-75); PLATELET COUNT 293 x10^3/uL (130-400); RED BLOOD COUNT 3.05 x10^6/uL (4.38-5.82); RED CELL DISTRIBUTION WIDTH 16.1 % (9.4-14.8)
--- NOTE | 2018-12-24 13:10 | NUR ---
UPON FURTHER ASSESSMENT PT WAS FOUND TO BE JAUNDICE AND HAVING CONJUCTIVA PALE. PT REPORTS HX OF LOW H/H. PT HAS ALSO WHAT APPEARS TO BE A LBB ON HIS EKG. PT HAD PIV PLACED AND TYPE/CROSS WITH LABS COLLECTED. PT MOVED TO CORE ROOM 02 PER [employer]ATOR REQUEST. REPORT TO LUCILA CLINE.
[2018-12-24 13:21] LABS: ALBUMIN 2.5 g/dL (3.4-5.0); ANION GAP 9 mmol/L (5-15); CALCIUM 8.1 mg/dL (8.5-10.1); CHLORIDE 111 mmol/L (98-107)
[2018-12-24 13:24] LABS: ALANINE AMINOTRANSFERASE 65 U/L (12-78); ALKALINE PHOSPHATASE 127 U/L (45-117); BILIRUBIN,TOTAL 0.4 mg/dL (0.2-1.0); CREATININE 4.12 mg/dL (0.7-1.3); TOTAL PROTEIN 8.8 g/dL (6.4-8.2)
--- NOTE | 2018-12-24 14:00 | NUR ---
REPORT FROM LAUREN RN WITH ASSESSMENT PATIENT RESTING COMFORTABLY ON GURNEY MINIMAL WOB NOTED, RR17, 93% ON RA PROVIDER TO BEDSIDE-PLAN TO D/C SHORTLY W/ MEDICATION FOR PNA AND REFERRAL TO ESTABLISHED SPECIALISTS
[2018-12-24 14:35] VITALS: BP 159/106
== END 2018-12-24 14:38 | disposition home or self-care (01) ==
LOC: ED 14:08
DX: J15.9 Unspecified bacterial pneumonia (principal); I12.9 Hypertensive chronic kidney disease with stage 1 through stage 4 chronic kidney disease, or unspecified chronic kidney disease; N18.9 Chronic kidney disease, unspecified; E10.22 Type 1 diabetes mellitus with diabetic chronic kidney disease; E10.65 Type 1 diabetes mellitus with hyperglycemia; F31.9 Bipolar disorder, unspecified; G40.909 Epilepsy, unspecified, not intractable, without status epilepticus; E78.00 Pure hypercholesterolemia, unspecified; Z87.891 Personal history of nicotine dependence; D64.9 Anemia, unspecified
CPT/HCPCS: 36415; 71046; 80053; 82306; 83735; 83970; 84100; 85025; 86850; 86900; 93005; 99284

== ENCOUNTER 2019-01-17 02:43 | Inpatient (IN) | payer MEDICARE, MEDICAID ==
[~2019-01-17] VITALS: Ht 175.3 cm; Wt 68.1 kg
[2019-01-17 03:23] LABS: MEAN CORPUSCULAR HEMOGLOBIN 31.1 pg (27.5-34.5); MEAN CORPUSCULAR HGB CONC 31.9 g/dL (33.2-36.2); MEAN CORPUSCULAR VOLUME 97.5 fL (81-97); MEAN PLATELET VOLUME 10.1 fL (7.4-10.4); PLATELET COUNT 141 x10^3/uL (130-400); RED BLOOD COUNT 3.13 x10^6/uL (4.38-5.82)
[2019-01-17 03:31] LABS: INTERNATIONAL NORMALIZED RATIO 1.4 (0.93-1.1); PROTHROMBIN TIME 14.5 Seconds (9.6-11.5)
[2019-01-17 03:34] LABS: ALANINE AMINOTRANSFERASE 112 U/L (12-78); ALBUMIN 1.9 g/dL (3.4-5.0); ANION GAP 14 mmol/L (5-15); CALCIUM 8.2 mg/dL (8.5-10.1); CHLORIDE 106 mmol/L (98-107); CREATININE 6.56 mg/dL (0.7-1.3)
[2019-01-17] MEDS ORDERED: PIPERACILLIN/TAZO/PMX 3.375GM 50 ML ONE (03:35)
[2019-01-17 03:38] LABS: ALKALINE PHOSPHATASE 73 U/L (45-117)
--- NOTE | 2019-01-17 03:45 | NUR ---
BLOOD CULTURES HAVE BEEN DRAWN TIMES 2 PRIOR TO ABX ADMINISTRATION
[2019-01-17 03:46] LABS: TROPONIN I 0.128 ng/mL (0.000-0.045)
[2019-01-17] MEDS ORDERED: VANCOMYCIN 1,400 MG in SODIUM CHLORIDE 0.9% 250 ML IV ONE (04:00)
[2019-01-17] MEDS ORDERED: SODIUM CHLORIDE 0.9% 1,000ML IVBOLUS ONE ×3 (04:00→13:00)
[2019-01-17] MEDS ORDERED: PIPERACILLIN/TAZO/PMX 3.375GM 50 ML IVPB ONE (04:00)
[2019-01-17] MEDS ORDERED: VANCOMYCIN PER PHARMACY IV ONE (04:00)
[2019-01-17 04:06] LABS: MD YES
[2019-01-17 04:12] LABS: BAND#(MANUAL) 2.28 x10^3/uL; BANDS%(MANUAL) 20 % (0-7); EOS#(MANUAL) 0.11 x10^3/uL (0.0-0.4); EOS% (MANUAL) 1 % (1-7); LYMPHS% (MANUAL) 7 % (22-44); MONOS#(MANUAL) 0.46 x10^3/uL (0.3-2.7); MONOS% (MANUAL) 4 % (2-9); MYELOCYTES# (MANUAL) 0.11 x10^3/uL (0-0); MYELOCYTES% (MANUAL) 1 % (0-0); SEG#(MANUAL) 7.64 x10^3/uL (1.8-6.8); SEGS% (MANUAL) 67 % (42-75)
[2019-01-17 04:13] LABS: ANISOCYTOSIS 1+
[2019-01-17 04:14] LABS: POLYCHROMASIA 1+
[2019-01-17] MEDS ORDERED: SODIUM CHLORIDE 0.9% 1,000 ML IV SCH (04:14)
[2019-01-17 04:15] LABS: <PLATELET ESTIMATE> ADEQUATE; LARGE PLATELETS 1+; PMNS WITH VACUOLES 1+; TOXIC GRAN 2+
--- NOTE | 2019-01-17 04:17 | NUR ---
DR FORRESTER AT BEDSIDE
[2019-01-17] MEDS ORDERED: OXYcodone IR 5MG TABLET PO PRN (04:30)
[2019-01-17] MEDS ORDERED: POLYETHYLENE GLYCOL 17 GM PACKET PO PRN (04:30)
[2019-01-17] MEDS ORDERED: hydrALAzine 20 MG/ML, 1ML IVPush PRN (04:30)
[2019-01-17] MEDS ORDERED: ONDANSETRON 2MG/ML, 2ML IVPush PRN (04:30)
[2019-01-17] MEDS ORDERED: DOCUSATE 100 MG CAPSULE PO PRN (04:30)
[2019-01-17] MEDS ORDERED: HEPARIN 5,000 UNITS/ML, 1ML SQ SCH (04:30)
[2019-01-17] MEDS ORDERED: BISACODYL 10 MG SUPP PR PRN (04:30)
[2019-01-17] MEDS ORDERED: NITROGLYCERIN 0.4 MG BOTTLE (25 TABS) SL PRN (04:30)
[2019-01-17] MEDS ORDERED: ACETAMINOPHEN 325 MG TABLET PO PRN (04:30)
[2019-01-17] MEDS ORDERED: NICOTINE 7 MG/24 HR PATCH.TD24 TD SCH (04:30)
[2019-01-17] MEDS ORDERED: ONDANSETRON ODT 4 MG PO PRN (04:30)
[2019-01-17] MEDS ORDERED: PROMETHAZINE 25 MG/ML, 1ML IM PRN (04:30)
[2019-01-17] MEDS ORDERED: DEXTROSE 4 GM TAB.CHEW PO PRN ×2 (05:00→13:00)
[2019-01-17] MEDS ORDERED: CEFTRIAXONE PMX 2GM/50ML 50 ML IV SCH (05:00)
[2019-01-17] MEDS ORDERED: DOXYCYCLINE 100 MG in DEXTROSE 5% 250 ML IV SCH ×2 (05:00→11:00)
[2019-01-17] MEDS ORDERED: DEXTROSE 50%, 50ML SYRINGE IVPush PRN ×2 (05:00→13:00)
[2019-01-17] MEDS ORDERED: GLUCAGON 1 MG IM PRN ×2 (05:00→13:00)
[2019-01-17 05:06] LABS: FREE T4 (FREE THYROXINE) 1.15 ng/dL (0.76-1.46)
[2019-01-17 05:11] LABS: THYROID STIMULATING HORMONE 0.395 mIU/L (0.358-3.740)
[2019-01-17 05:12] LABS: HEMOGLOBIN A1C 7.7 % (4.2-6.3)
[2019-01-17 05:14] VITALS: BP 99/64
[2019-01-17] MEDS ORDERED: ASPIRIN 325 MG TABLET EC PO SCH (06:00)
[2019-01-17] MEDS ORDERED: INSULIN LISPRO 100 UNITS/ML, PEN SQ-INSULIN SCH ×3 (07:00→16:00)
[2019-01-17] MEDS: morphine SULFATE 10 MG/ML, 1ML IVPush PRN ×4 (07:06→08:15)
[2019-01-17] MEDS ORDERED: SODIUM BICARBONATE 1 MEQ/ML, 50ML VIAL ONE ×2 (07:41→15:21)
[2019-01-17] MEDS ORDERED: EPINEPHRINE SYRINGE 0.1 MG/ML, 10ML ONE ×3 (07:41→10:30)
[2019-01-17] MEDS ORDERED: DEXTROSE 50%, 50ML SYRINGE ONE (07:41)
[2019-01-17] MEDS ORDERED: SODIUM BICARB 8.4%, 50ML SYRINGE ONE ×4 (07:45→16:30)
[2019-01-17 07:56] VITALS: BP 101/65
[2019-01-17 08:25] LABS: ANION GAP 12 mmol/L (5-15); CALCIUM 8.3 mg/dL (8.5-10.1); CHLORIDE 107 mmol/L (98-107)
[2019-01-17 08:33] LABS: CREATININE 6.32 mg/dL (0.7-1.3)
[2019-01-17] MEDS ORDERED: ASPIRIN 81 MG TABLET EC PO SCH (09:00)
[2019-01-17] MEDS ORDERED: SODIUM CHLORIDE FLUSH 10ML SYR IVF SCH ×2 (09:00→21:00)
[2019-01-17] MEDS ORDERED: ZOSYN PER PHARMACY MC PRN (09:00)
[2019-01-17] MEDS ORDERED: CARVEDILOL 3.125 MG TABLET PO SCH (09:00)
[2019-01-17] MEDS ORDERED: LIDOCAINE-MPF 1%, 5ML ONE (09:40)
[2019-01-17] MEDS ORDERED: LINEZOLID PMX 600MG/300ML 300 ML IV SCH ×2 (10:00→13:00)
[2019-01-17] MEDS ORDERED: AMIODARONE 50 MG/ML, 3ML ONE (10:30)
[2019-01-17] MEDS ORDERED: CODE BLUE RESPONSE XX ONE ×2 (10:30→16:30)
[2019-01-17] MEDS ORDERED: ETOMIDATE 20 MG/10 ML ONE (10:30)
[2019-01-17] MEDS ORDERED: NALOXONE 1 MG/ML, 2ML ONE (10:30)
[2019-01-17] MEDS ORDERED: VASOPRESSIN 20 UNIT/ML, 1ML ONE (10:30)
[2019-01-17] MEDS ORDERED: VECURONIUM 20 MG VIAL ONE (10:30)
[2019-01-17] MEDS ORDERED: PROPOFOL 100 ML IV ONE (10:52)
[2019-01-17] MEDS ORDERED: GUAIFENESIN 200 MG TABLET PO SCH (11:00)
[2019-01-17] MEDS ORDERED: AMIODARONE 900 MG in DEXTROSE 5% 482 ML IV PRN ×2 (11:30→13:00)
[2019-01-17] MEDS ORDERED: FILTER 0.22 MICRON IV SCH (11:30)
[2019-01-17] MEDS ORDERED: VASOPRESSIN 100 UNIT in SODIUM CHLORIDE 0.9% 495 ML IV PRN ×2 (11:30→12:45)
[2019-01-17] MEDS ORDERED: SODIUM BICARBONATE 8.4% 150 MEQ in DEXTROSE 5% 1,000 ML IV SCH ×2 (11:30→13:00)
[2019-01-17] MEDS ORDERED: SODIUM BICARB 8.4%, 50ML SYRINGE IVPush STA (11:56)
[2019-01-17] MEDS ORDERED: PIPERACILLIN/TAZO 2.25 GM in NS 50 ML IV SCH (12:00)
[2019-01-17] MEDS ORDERED: PIPERACILLIN/TAZO/PMX 2.25GM 50 ML IVPB SCH ×2 (12:00→18:00)
[2019-01-17] MEDS ORDERED: AMIODARONE 150 MG in DEXTROSE 5% 100 ML IV ONE (12:30)
[2019-01-17] MEDS ORDERED: ALBUMIN HUMAN 25% 100 ML IV SCH (12:30)
[2019-01-17 12:32] LABS: TROPONIN I 0.253 ng/mL (0.000-0.045)
[2019-01-17] MEDS ORDERED: PROPOFOL 100 ML IV PRN (12:45)
[2019-01-17] MEDS ORDERED: NOREPINEPHRINE 4 MG in SODIUM CHLORIDE 0.9% 246 ML IV PRN (12:45)
[2019-01-17] MEDS ORDERED: ALBUTEROL/IPRATROPIUM 2.5MG/0.5MG, 3 ML INLINE SCH (13:00)
[2019-01-17] MEDS ORDERED: PIPERACILLIN/TAZO/PMX 2.25GM 50 ML IV SCH (13:00)
[2019-01-17] MEDS ORDERED: PHARMACY MAY ADJ FOR RENAL FX MC SCH (13:00)
[2019-01-17] MEDS ORDERED: FENTANYL PF 100 MCG/2ML IVPush PRN (13:00)
[2019-01-17] MEDS ORDERED: LIDOCAINE-MPF 1%, 2ML ENDO PRN (13:00)
[2019-01-17 13:15] LABS: FIO2 100 %
[2019-01-17 13:31] LABS: INTERNATIONAL NORMALIZED RATIO 1.56 (0.93-1.1); PROTHROMBIN TIME 16.1 Seconds (9.6-11.5)
[2019-01-17 13:36] LABS: TROPONIN I 0.484 ng/mL (0.000-0.045)
[2019-01-17 13:43] LABS: ACETONE, SERUM Trace (10mg/dL) mg/dL (Negative)
[2019-01-17 14:21] LABS: MEAN CORPUSCULAR HEMOGLOBIN 31.3 pg (27.5-34.5); MEAN CORPUSCULAR VOLUME 97.8 fL (81-97); MEAN PLATELET VOLUME 10.3 fL (7.4-10.4); PLATELET COUNT 106 x10^3/uL (130-400); RED BLOOD COUNT 3.08 x10^6/uL (4.38-5.82); RED CELL DISTRIBUTION WIDTH 17.8 % (9.4-14.8)
[2019-01-17 14:33] LABS: ALANINE AMINOTRANSFERASE 89 U/L (12-78); ALBUMIN 1.5 g/dL (3.4-5.0); ANION GAP 19 mmol/L (5-15); CALCIUM 7.8 mg/dL (8.5-10.1); CHLORIDE 108 mmol/L (98-107); CREATININE 6.49 mg/dL (0.7-1.3)
[2019-01-17 14:39] LABS: MD YES
[2019-01-17 14:42] LABS: ALKALINE PHOSPHATASE 84 U/L (45-117); BILIRUBIN,TOTAL 0.8 mg/dL (0.2-1.0); CREATINE KINASE, TOTAL 135 U/L (39-308); TOTAL PROTEIN 6.1 g/dL (6.4-8.2)
[2019-01-17 14:43] LABS: TRIGLYCERIDES 117 mg/dL (50-200)
[2019-01-17 14:44] LABS: BAND#(MANUAL) 2.16 x10^3/uL; BANDS%(MANUAL) 24 % (0-7); LYMPH#(MANUAL) 0.36 x10^3/uL (1-3.4); LYMPHS% (MANUAL) 4 % (22-44); MONOS#(MANUAL) 0.72 x10^3/uL (0.3-2.7); MONOS% (MANUAL) 8 % (2-9); NRBC % (MANUAL) 2 % (0-1); SEG#(MANUAL) 5.76 x10^3/uL (1.8-6.8); SEGS% (MANUAL) 64 % (42-75)
[2019-01-17 14:45] LABS: ANISOCYTOSIS 1+; PMNS WITH VACUOLES 1+; POLYCHROMASIA 1+; TOXIC GRAN 2+
[2019-01-17 14:46] LABS: <PLATELET ESTIMATE> DECREASED; LARGE PLATELETS 1+
[2019-01-17] MEDS ORDERED: SODIUM BICARBONATE 1 MEQ/ML, 50ML VIAL IVPush STA (14:53)
[2019-01-17] MEDS ORDERED: DEXTROSE 50%, 50ML SYRINGE IVPush ONE (15:00)
[2019-01-17] MEDS ORDERED: INSULIN REGULAR 100 UNITS/ML, 3ML VIAL IVPush ONE (15:00)
[2019-01-17 16:12] LABS: ANION GAP 18 mmol/L (5-15); CALCIUM 8.1 mg/dL (8.5-10.1); CHLORIDE 105 mmol/L (98-107)
[2019-01-17] MEDS ORDERED: ATORVASTATIN 40 MG TABLET PO SCH (21:00)
[2019-01-18] MEDS ORDERED: PANTOPRAZOLE 40 MG IV IV SCH (09:00)
[2019-01-18] MEDS ORDERED: SODIUM BICARBONATE 8.4% 150 MEQ in DEXTROSE 5% 1,000 ML IV SCH (13:00)
== END 2019-01-18 06:14 | disposition expired | DRG 871 ==
LOC: ED 03:23 → EDIP 04:01 → 4WST 04:57 → CCU 10:47
PROVIDERS: ADMIT Internal Medicine; ATTEND Internal Medicine
PROC: 0W9B3ZZ Drainage of Left Pleural Cavity, Percutaneous Approach (ICD-10-PCS; principal; 2019-01-17)
PROC: 05HN33Z Insertion of Infusion Device into Left Internal Jugular Vein, Percutaneous Approach (ICD-10-PCS; 2019-01-17)
PROC: B544ZZA Ultrasonography of Left Jugular Veins, Guidance (ICD-10-PCS; 2019-01-17)
PROC: 5A1935Z Respiratory Ventilation, Less than 24 Consecutive Hours (ICD-10-PCS; 2019-01-17)
PROC: 0BH17EZ Insertion of Endotracheal Airway into Trachea, Via Natural or Artificial Opening (ICD-10-PCS; 2019-01-17)
PROC: 5A12012 Performance of Cardiac Output, Single, Manual (ICD-10-PCS; 2019-01-17)
PROC: 04HY32Z Insertion of Monitoring Device into Lower Artery, Percutaneous Approach (ICD-10-PCS; 2019-01-17)
PROC: 4A133B1 Monitoring of Arterial Pressure, Peripheral, Percutaneous Approach (ICD-10-PCS; 2019-01-17)
PROC: 4A133J1 Monitoring of Arterial Pulse, Peripheral, Percutaneous Approach (ICD-10-PCS; 2019-01-17)
DX: A41.50 Gram-negative sepsis, unspecified (principal); J15.9 Unspecified bacterial pneumonia; N17.0 Acute kidney failure with tubular necrosis; I21.4 Non-ST elevation (NSTEMI) myocardial infarction; J96.01 Acute respiratory failure with hypoxia; R65.21 Severe sepsis with septic shock; E46 Unspecified protein-calorie malnutrition; I13.0 Hypertensive heart and chronic kidney disease with heart failure and stage 1 through stage 4 chronic kidney disease, or unspecified chronic kidney disease; I50.22 Chronic systolic (congestive) heart failure; J44.0 Chronic obstructive pulmonary disease with (acute) lower respiratory infection; Z99.11 Dependence on respirator [ventilator] status; D53.9 Nutritional anemia, unspecified; D63.8 Anemia in other chronic diseases classified elsewhere; D69.6 Thrombocytopenia, unspecified; E10.21 Type 1 diabetes mellitus with diabetic nephropathy; E10.22 Type 1 diabetes mellitus with diabetic chronic kidney disease; E10.40 Type 1 diabetes mellitus with diabetic neuropathy, unspecified; E10.51 Type 1 diabetes mellitus with diabetic peripheral angiopathy without gangrene; E10.65 Type 1 diabetes mellitus with hyperglycemia; E55.9 Vitamin D deficiency, unspecified; E78.00 Pure hypercholesterolemia, unspecified; E78.5 Hyperlipidemia, unspecified; F10.20 Alcohol dependence, uncomplicated; F17.210 Nicotine dependence, cigarettes, uncomplicated; F31.9 Bipolar disorder, unspecified; G40.909 Epilepsy, unspecified, not intractable, without status epilepticus; I25.2 Old myocardial infarction; I25.5 Ischemic cardiomyopathy; I27.20 Pulmonary hypertension, unspecified; I44.7 Left bundle-branch block, unspecified; I46.9 Cardiac arrest, cause unspecified; I48.91 Unspecified atrial fibrillation; K70.30 Alcoholic cirrhosis of liver without ascites; K70.40 Alcoholic hepatic failure without coma; N18.3 Chronic kidney disease, stage 3 (moderate); Z66 Do not resuscitate; Z85.05 Personal history of malignant neoplasm of liver; Z86.14 Personal history of Methicillin resistant Staphylococcus aureus infection; Z89.429 Acquired absence of other toe(s), unspecified side; Z91.14 Patient's other noncompliance with medication regimen; G89.29 Other chronic pain; M19.90 Unspecified osteoarthritis, unspecified site
CPT/HCPCS: 32555; 36415; 36556; 36600; 71045; 77001; 80048; 80053; 82010; 82533; 82550; 82803; 82962; 83036; 83605; 83615; 83690; 83735; 84100; 84145; 84439; 84443; 84478; 84484; 84550; 85025; 85384; 85610; 85730; 86705; 86706; 86803; 86850; 86900; 87040; 87070; 87077; 87081; 87186; 87205; 87340; 87521; 92950; 93005; 93306; 94002; G0378; J0696; J1815; J2543; J3370; J7060; J7070; J7620; P9047; J0282; J1642; J2270; J2310; J7030; J7050